=== PATIENT | female | born 1940 | race Caucasian/White ===

== ENCOUNTER 2017-07-09 19:13 | Emergency (ER) | payer OTHER ==
[~2017-07-09] VITALS: Ht 152.4 cm; Wt 59.0 kg
[~2017-07-09 19:13] MED LIST: ALBU90OI INH; ATOR10; ATOR20 PO; AZIT250 PO; CARV6.25 PO; CYAN1000 PO; ESCI10; ESCI10 PO; HYDACE5 PO; LISI10; LISI5 PO; MECL25 PO; MELO7.5 PO; NADO20; NADO40; NADO40 PO; NADOLOL PO; OMEP20ER PO; PROACE100 PO; RISE35 PO; RXPROACE PO; SILSUL1TC TOP; SULTRIDS PO; TRAM50 PO; TRIA55OI
[2017-07-09] MEDS ORDERED: BENZ100A PO (20:42)
== END 2017-07-09 20:54 | disposition home or self-care (01) ==
LOC: ER 19:13
DX: J18.9 Pneumonia, unspecified organism (principal); R05 Cough; Z79.899 Other long term (current) drug therapy; I10 Essential (primary) hypertension; E78.5 Hyperlipidemia, unspecified; F32.9 Major depressive disorder, single episode, unspecified
CPT/HCPCS: 99283

== ENCOUNTER → 2017-07-11 | Outpatient (CLI) | payer OTHER ==
[~2017-07-11] MED LIST changes: +BENZ100A PO
[2017-07-11 15:39] LABS: Source, Urine Clean Catch
[2017-07-11 16:14] LABS: Bacteria Few /hpf; Squamous Epithelial Cells Not Seen /hpf (Few); White Blood Cells, Urine 25-50 /hpf (0-5)
[2017-07-11 16:15] LABS: Hyaline Casts Rare /lpf (0-2); Renal Epithelial Rare /hpf (0-Rare); Transitional Epithelial Cells Few /hpf (0-Rare)
== END ==
LOC: LAB SHORT 15:36
PROVIDERS: Physician Assistant
DX: R53.83 Other fatigue (principal)
CPT/HCPCS: 81015

== ENCOUNTER → 2017-09-03 | Outpatient (CLI) | payer OTHER | END | disposition home or self-care (01) | LOC: LAB EV 11:41 | DX: B37.0 Candidal stomatitis (principal) | CPT/HCPCS: 87070 ==

== ENCOUNTER 2020-11-01 18:56 | Emergency (ER) | payer OTHER ==
[~2020-11-01] VITALS: Ht 152.4 cm; Wt 36.3 kg
[~2020-11-01 18:56] MED LIST changes: -CARV6.25 PO; -CYAN1000 PO; +Carvedilol12.5 MG PO; +Vitamin B-121000 MCG PO
[2020-11-01 19:56] LABS: BASOPHILS ABSOLUTE AUTO 0.02 K/mm3 (0.00-0.23); BASOPHILS PERCENT AUTO 0 % (0-2); EOSINOPHILS ABSOLUTE AUTO 0.02 K/mm3 (0.00-0.68); EOSINOPHILS PERCENT AUTO 0 % (0-6); Hematocrit 32.9 % (33.0-51.0); Hemoglobin 10.7 g/dL (11.5-16.0); IMMATURE GRAN ABSOLUTE AUTO 0.05 K/mm3 (0.00-0.10); IMMATURE GRAN PERCENT AUTO 0 % (0-1); LYMPHOCYTES ABSOLUTE AUTO 1.28 K/mm3 (0.84-5.20); LYMPHOCYTES PERCENT AUTO 10 % (21-46); MONOCYTES ABSOLUTE AUTO 0.67 K/mm3 (0.16-1.47); MONOCYTES PERCENT AUTO 5 % (4-13); Mean Corpuscular HGB 30.2 pg (26.0-34.0); Mean Corpuscular HGB Conc 32.5 g/dL (31.5-36.5); Mean Corpuscular Volume 93 fL (80-100); Mean Platelet Volume 9.1 fL (9.1-12.4); NEUTROPHILS ABSOLUTE AUTO 11.19 K/mm3 (1.96-9.15); NEUTROPHILS PERCENT AUTO 84 % (41-73); Platelet Count 410 K/mm3 (150-400); RDW Coefficient Variation 14.8 % (11.7-14.2); RDW Standard Deviation 50.3 fL (35.1-46.3); Red Blood Cell Count 3.54 M/mm3 (3.80-5.20); White Blood Cell Count 13.23 K/mm3 (4.00-11.30)
[2020-11-01 20:31] LABS: Alanine Aminotransfer (ALT/SGP 41 U/L (12-78); Albumin/Globulin Ratio 0.5 (0.8-1.8); Alk Phos 1086 U/L (50-136); Anion Gap 4 mmol/L (6-16); Aspartate Aminotrans (AST/SGOT 55 U/L (12-37); Blood Urea Nitrogen 10 mg/dL (8-24); Bun/Creatinine Ratio 12.5 (12.0-20.0); CO2, Blood 30 mmol/L (21-32); Calcium, Blood 8.2 mg/dL (8.5-10.1); Chloride, Blood 103 mmol/L (98-108); Globulin, Blood 4.1 g/dL (2.2-4.0); Glomerular Filtration Rate >60 (60-); Glucose, Blood 123 mg/dL (70-99); Potassium, Blood 3.9 mmol/L (3.5-5.5); Sodium, Blood 137 mmol/L (136-145); Total Protein, Blood 6.1 g/dL (6.4-8.2)
[2020-11-01 22:48] LABS: Source, Urine Clean Catch
[2020-11-01 22:52] LABS: Appearance, Urine Clear (Clear); Bilirubin, Urine Neg (Neg); Blood, Urine Neg (Neg); Color, Urine Yellow (P-Yellow); Glucose Qualitative, Urine Neg (Neg); Ketones, Urine Neg (Neg); Leukocyte Esterase, Urine 2+ (Neg); Nitrite, Urine Neg (Neg); Protein, Urine 1+ (Neg); Specific Gravity, Urine 1.005 (1.003-1.022); Urobilinogen, Urine 1+ (Normal)
[2020-11-01] MEDS ORDERED: AMOCLA875 PO (22:54)
[2020-11-01] MEDS ORDERED: CLIN150 PO (22:54)
[2020-11-01 22:59] LABS: Bacteria Mod /hpf; Red Blood Cells, Urine 0-2 /hpf (0-2); Squamous Epithelial Cells Few /hpf (Few)
== END 2020-11-01 23:10 | disposition home or self-care (01) ==
LOC: ER 18:56
PROVIDERS: Physician Assistant
DX: K52.82 Eosinophilic colitis (principal); I10 Essential (primary) hypertension; E78.5 Hyperlipidemia, unspecified; J44.9 Chronic obstructive pulmonary disease, unspecified; L03.115 Cellulitis of right lower limb; Z79.899 Other long term (current) drug therapy
CPT/HCPCS: 36415; 74177; 80053; 81001; 83690; 85025; 87077; 87086; 87186; 99284-25; A9270; J7030; Q9967

== ENCOUNTER 2020-11-18 21:22 | Inpatient (IN) | payer OTHER ==
[~2020-11-18] VITALS: Ht 162.6 cm; Wt 46.4 kg
[~2020-11-18 21:22] MED LIST changes: +AMOCLA875 PO; +CLIN150 PO
[2020-11-19 01:15] LABS: BASOPHILS ABSOLUTE AUTO 0.01 K/mm3 (0.00-0.23); BASOPHILS PERCENT AUTO 0 % (0-2); EOSINOPHILS PERCENT AUTO 0 % (0-6); Hematocrit 32.5 % (33.0-51.0); Hemoglobin 10.7 g/dL (11.5-16.0); IMMATURE GRAN ABSOLUTE AUTO 0.09 K/mm3 (0.00-0.10); IMMATURE GRAN PERCENT AUTO 1 % (0-1); LYMPHOCYTES ABSOLUTE AUTO 0.67 K/mm3 (0.84-5.20); LYMPHOCYTES PERCENT AUTO 4 % (21-46); MONOCYTES ABSOLUTE AUTO 1.02 K/mm3 (0.16-1.47); MONOCYTES PERCENT AUTO 6 % (4-13); Mean Corpuscular HGB 30.1 pg (26.0-34.0); Mean Corpuscular HGB Conc 32.9 g/dL (31.5-36.5); Mean Corpuscular Volume 91 fL (80-100); Mean Platelet Volume 9.4 fL (9.1-12.4); NEUTROPHILS ABSOLUTE AUTO 14.58 K/mm3 (1.96-9.15); NEUTROPHILS PERCENT AUTO 89 % (41-73); Platelet Count 286 K/mm3 (150-400); RDW Coefficient Variation 14.8 % (11.7-14.2); RDW Standard Deviation 49.6 fL (35.1-46.3); Red Blood Cell Count 3.56 M/mm3 (3.80-5.20); White Blood Cell Count 16.37 K/mm3 (4.00-11.30)
[2020-11-19 01:34] LABS: Albumin, Blood 1.9 g/dL (3.4-5.0); Albumin/Globulin Ratio 0.5 (0.8-1.8); Bilirubin, Total 0.9 mg/dL (0.1-1.0); Bun/Creatinine Ratio 18.1 (12.0-20.0); Calcium, Blood 7.9 mg/dL (8.5-10.1); Creatinine, Blood 1.66 mg/dL (0.40-1.00); Globulin, Blood 3.8 g/dL (2.2-4.0); Potassium, Blood 4.6 mmol/L (3.5-5.5); Total Protein, Blood 5.7 g/dL (6.4-8.2); Troponin I 0.106 ng/mL (0.000-0.040)
[2020-11-19] MEDS ORDERED: VENL75ER PO (05:42)
[2020-11-19] MEDS ORDERED: MOBIC15 MG PO (05:44)
[2020-11-19] MEDS ORDERED: BACTRIM DS TAB1 EAC6 PO (05:45)
[2020-11-19 09:42] LABS: BASOPHILS ABSOLUTE AUTO 0.01 K/mm3 (0.00-0.23); BASOPHILS PERCENT AUTO 0 % (0-2); EOSINOPHILS PERCENT AUTO 0 % (0-6); Hematocrit 28.2 % (33.0-51.0); IMMATURE GRAN ABSOLUTE AUTO 0.04 K/mm3 (0.00-0.10); IMMATURE GRAN PERCENT AUTO 0 % (0-1); LYMPHOCYTES ABSOLUTE AUTO 0.63 K/mm3 (0.84-5.20); LYMPHOCYTES PERCENT AUTO 6 % (21-46); MONOCYTES PERCENT AUTO 6 % (4-13); Mean Corpuscular HGB 29.6 pg (26.0-34.0); Mean Corpuscular HGB Conc 31.9 g/dL (31.5-36.5); Mean Corpuscular Volume 93 fL (80-100); Mean Platelet Volume 9.4 fL (9.1-12.4); NEUTROPHILS ABSOLUTE AUTO 9.43 K/mm3 (1.96-9.15); NEUTROPHILS PERCENT AUTO 88 % (41-73); Platelet Count 231 K/mm3 (150-400); RDW Coefficient Variation 15.2 % (11.7-14.2); RDW Standard Deviation 51.5 fL (35.1-46.3); Red Blood Cell Count 3.04 M/mm3 (3.80-5.20); White Blood Cell Count 10.71 K/mm3 (4.00-11.30)
[2020-11-19 10:11] LABS: Troponin I 0.102 ng/mL (0.000-0.040)
[2020-11-19 10:12] LABS: Albumin, Blood 2.5 g/dL (3.4-5.0); Albumin/Globulin Ratio 0.8 (0.8-1.8); Bilirubin, Total 1.1 mg/dL (0.1-1.0); Bun/Creatinine Ratio 17.4 (12.0-20.0); Creatinine, Blood 1.78 mg/dL (0.40-1.00); Globulin, Blood 3.2 g/dL (2.2-4.0); Potassium, Blood 4.2 mmol/L (3.5-5.5); Total Protein, Blood 5.7 g/dL (6.4-8.2)
[2020-11-19 10:17] LABS: Bun/Creatinine Ratio 17.2 (12.0-20.0); Creatinine, Blood 1.74 mg/dL (0.40-1.00); Potassium, Blood 4.1 mmol/L (3.5-5.5)
[2020-11-19 10:49] LABS: Creatine Kinase MB 5.6 ng/mL (0.0-3.6); Creatine Kinase MB Index 1.8 (0.0-4.0)
[2020-11-19 16:47] LABS: Hematocrit 28.7 % (33.0-51.0); Hemoglobin 9.3 g/dL (11.5-16.0)
[2020-11-19 17:16] LABS: Troponin I 0.112 ng/mL (0.000-0.040)
[2020-11-19 17:30] LABS: Creatine Kinase MB 4.8 ng/mL (0.0-3.6); Creatine Kinase MB Index 1.3 (0.0-4.0)
--- NOTE | 2020-11-19 18:24 | NUR ---
SHIFT SUMMARY PT ADMITTED TO UNIT AT 0750 THIS SHIFT. A&O TO SELF, SITUATION, AND FAMILY, PT IS VERY [place] AND FORGETFUL. PT IS A POOR HISTORIAN AND UNABLE TO RECALL MEDICATIONS AND SOME HEALTH HX. PT IS A 2P MAX ASSIST WITH TRANSFERS AND WITH BED MOBILITY. NO C/O PAIN OR ANY DISCOMFORT. NO C/O CP, SOB, N&V, OR DYSURIA. VSS. PT IS COOPERATIVE WITH CARE, SOME ANXIETY NOTED DURING CARE. PT TOLERATES MEDS ONE AT A TIME WITH THIN FLUIDS. PT ON IV ABX ORDERED, NO ASE NOTED. BED AT LOWEST POSITION. CALL LIGHT WITHIN REACH.
[2020-11-20 05:03] LABS: Albumin/Globulin Ratio 0.7 (0.8-1.8); Bilirubin, Total 0.6 mg/dL (0.1-1.0); Bun/Creatinine Ratio 16.2 (12.0-20.0); Calcium, Blood 7.3 mg/dL (8.5-10.1); Creatinine, Blood 1.79 mg/dL (0.40-1.00); Globulin, Blood 2.8 g/dL (2.2-4.0); Potassium, Blood 3.7 mmol/L (3.5-5.5); Total Protein, Blood 4.8 g/dL (6.4-8.2)
--- NOTE | 2020-11-20 18:07 | NUR ---
SHIFT SUMMARY PT A&O TO SELF AND FAMILY, PLEASANT AND COOPERATIVE TO CARE. PT MEDICATED FOR KIMANI KNEE PAIN PER EMAR. NO C/O CP, SOB, OR N&V. PT ON IV ABX ORDERED, NO ASE NOTED. 2P MAX ASSIST WITH BED MOBILITY. PT INCONTINENT, ATTENDS IN PLACE. DENIES DYSURIA. BED AT LOWEST POSITION. CALL LIGHT WITHIN REACH.
--- NOTE | 2020-11-21 00:10 | NUR ---
transfer report to Krysten DOZIER on elderly PT lives alone with falls & unable to care for self. SW & family OOT working on safe dc paln. TRanferred room from 361 to 341 due to need for tele monitoring bed. Bedside report given. Personal belongings sent with PT to new room.
--- NOTE | 2020-11-21 00:15 | NUR ---
ASSUMED CARE RECEIVED REPORT FROM TASIA WOOTEN. PT RESTING QUIETLY, IN NAD, RESPS E/U. DENIES PAIN. APPEARS COMFORTABLE. NO ACUTE NEEDS ASSESSED AT THIS TIME. CALL LIGHT, POSSESSIONS IN REACH, BED IN LOW AND LOCKED POSITION WITH ALARMS ON.
--- NOTE | 2020-11-21 04:17 | NUR ---
NEWS VIDEO EDITOR SUMMARY PT ASLEEP, IN NAD. VS REVIEWED,WNL. NO ACUTE CHANGES IN CONDITION NOTED. NO C/O PAIN OR DISCOMFORT. RESPS E/U. DENIES NEEDS AT THIS TIME. CALL LIGHT, POSSESSIONS IN REACH, BED IN LOW AND LOCKED POSITION WITH ALARMS ON. WILL CONTINUE TO PROVIDE CARE UNTIL REPORT GIVEN TO ONCOMING RN.
[2020-11-21 06:03] LABS: BASOPHILS ABSOLUTE AUTO 0.01 K/mm3 (0.00-0.23); BASOPHILS PERCENT AUTO 0 % (0-2); EOSINOPHILS ABSOLUTE AUTO 0.02 K/mm3 (0.00-0.68); EOSINOPHILS PERCENT AUTO 0 % (0-6); Hematocrit 26.8 % (33.0-51.0); Hemoglobin 8.8 g/dL (11.5-16.0); IMMATURE GRAN ABSOLUTE AUTO 0.03 K/mm3 (0.00-0.10); IMMATURE GRAN PERCENT AUTO 1 % (0-1); LYMPHOCYTES ABSOLUTE AUTO 1.04 K/mm3 (0.84-5.20); LYMPHOCYTES PERCENT AUTO 17 % (21-46); MONOCYTES ABSOLUTE AUTO 0.55 K/mm3 (0.16-1.47); MONOCYTES PERCENT AUTO 9 % (4-13); Mean Corpuscular HGB 29.7 pg (26.0-34.0); Mean Corpuscular HGB Conc 32.8 g/dL (31.5-36.5); Mean Corpuscular Volume 91 fL (80-100); Mean Platelet Volume 9.6 fL (9.1-12.4); NEUTROPHILS ABSOLUTE AUTO 4.39 K/mm3 (1.96-9.15); NEUTROPHILS PERCENT AUTO 73 % (41-73); Platelet Count 172 K/mm3 (150-400); RDW Coefficient Variation 15.1 % (11.7-14.2); Red Blood Cell Count 2.96 M/mm3 (3.80-5.20); White Blood Cell Count 6.04 K/mm3 (4.00-11.30)
[2020-11-21 06:35] LABS: Bun/Creatinine Ratio 16.8 (12.0-20.0); Calcium, Blood 7.6 mg/dL (8.5-10.1); Creatinine, Blood 1.31 mg/dL (0.40-1.00); Potassium, Blood 3.8 mmol/L (3.5-5.5)
[2020-11-21 08:40] LABS: Percent Saturation 36.4 % (15.0-50.0)
[2020-11-21] MEDS ORDERED: ASPI81CH PO (13:04)
[2020-11-21] MEDS ORDERED: ACET325 PO (13:04)
[2020-11-21] MEDS ORDERED: TRAM50 PO (13:05)
[2020-11-21] MEDS ORDERED: AZIT250 PO (13:05)
[2020-11-21] MEDS ORDERED: CEFP200 PO (13:05)
--- NOTE | 2020-11-21 19:51 | NUR ---
PT DISCHARGED 1710 HOME- DC INSTRUCTIONS GIVEN TO DAUGHTER AND PT TOGETHER. HOME HEALTH TO FOLLOW. HOSP BED AND COMMODE WILL BE DELIVERED TO HOUSE. PT TRANSFERRED FROM BED TO WHEELCHAIR WITH GAIT BELT, PIVOT TX TO CHAIR. PT HAS POOR COORDINATION AND MIN STRENGTH, ABLE TO BEAR PARTIAL WT BLE. SENT HOME WITH INSTRUCTIONS ON PIVOT TX AND BEDBAN USE. INSTRUCTED ON SAFETY IN TRANSFERS. PT SENT HOME WITH BELONGINGS. CLIFF DROVE HOME IN PRIVATE CAR.
== END 2020-11-21 17:14 | disposition home health service (06) | DRG 682 ==
LOC: ER 21:22 → MEDS 11-19 04:19
PROVIDERS: Emergency Medicine; Internal Medicine; ADMIT Internal Medicine
DX: N17.9 Acute kidney failure, unspecified (principal); I21.4 Non-ST elevation (NSTEMI) myocardial infarction; G93.41 Metabolic encephalopathy; N18.30 Chronic kidney disease, stage 3 unspecified; J11.89 Influenza due to unidentified influenza virus with other manifestations; E86.0 Dehydration; I10 Essential (primary) hypertension; E78.5 Hyperlipidemia, unspecified; M17.0 Bilateral primary osteoarthritis of knee; M19.90 Unspecified osteoarthritis, unspecified site; M85.80 Other specified disorders of bone density and structure, unspecified site; J44.9 Chronic obstructive pulmonary disease, unspecified; Z98.51 Tubal ligation status; F32.9 Major depressive disorder, single episode, unspecified; Z96.652 Presence of left artificial knee joint
CPT/HCPCS: 36415; 71045; 73560-LT; 73560-RT; 76705; 80048; 80053; 82550; 82553; 82607; 82728; 82746; 82947; 83540; 83550; 83605; 84145; 84484; 85014; 85018; 85025; 93005; 93010; 93306; 97110; 97162; 97165; 97530; 99285-25; A9270; J0696; J1650; J7030; P9046

== ENCOUNTER 2020-12-01 16:44 | Inpatient (IN) | payer OTHER, MEDICARE ==
[~2020-12-01] VITALS: Ht 160 cm; Wt 34.9 kg
[~2020-12-01 16:44] MED LIST changes: +ACET325 PO; +ASPI81CH PO; +BACTRIM DS TAB1 EAC6 PO; +CEFP200 PO; +MOBIC15 MG PO; +VENL75ER PO
[2020-12-01 17:22] LABS: BASOPHILS ABSOLUTE AUTO 0.01 K/mm3 (0.00-0.23); BASOPHILS PERCENT AUTO 0 % (0-2); EOSINOPHILS ABSOLUTE AUTO 0.05 K/mm3 (0.00-0.68); EOSINOPHILS PERCENT AUTO 1 % (0-6); Hematocrit 28.6 % (33.0-51.0); Hemoglobin 9.2 g/dL (11.5-16.0); IMMATURE GRAN ABSOLUTE AUTO 0.02 K/mm3 (0.00-0.10); IMMATURE GRAN PERCENT AUTO 0 % (0-1); LYMPHOCYTES ABSOLUTE AUTO 0.99 K/mm3 (0.84-5.20); LYMPHOCYTES PERCENT AUTO 14 % (21-46); MONOCYTES ABSOLUTE AUTO 0.43 K/mm3 (0.16-1.47); MONOCYTES PERCENT AUTO 6 % (4-13); Mean Corpuscular HGB 30.1 pg (26.0-34.0); Mean Corpuscular HGB Conc 32.2 g/dL (31.5-36.5); Mean Corpuscular Volume 94 fL (80-100); NEUTROPHILS ABSOLUTE AUTO 5.57 K/mm3 (1.96-9.15); NEUTROPHILS PERCENT AUTO 79 % (41-73); Platelet Count 276 K/mm3 (150-400); RDW Coefficient Variation 15.9 % (11.7-14.2); RDW Standard Deviation 54.8 fL (35.1-46.3); Red Blood Cell Count 3.06 M/mm3 (3.80-5.20); White Blood Cell Count 7.07 K/mm3 (4.00-11.30)
[2020-12-01 17:44] LABS: Alanine Aminotransfer (ALT/SGP 60 U/L (12-78); Albumin, Blood 1.7 g/dL (3.4-5.0); Albumin/Globulin Ratio 0.5 (0.8-1.8); Alk Phos 955 U/L (50-136); Anion Gap 3 mmol/L (6-16); Aspartate Aminotrans (AST/SGOT 108 U/L (12-37); Bilirubin, Total 0.8 mg/dL (0.1-1.0); Blood Urea Nitrogen 9 mg/dL (8-24); Bun/Creatinine Ratio 11.4 (12.0-20.0); CO2, Blood 28 mmol/L (21-32); Calcium, Blood 7.8 mg/dL (8.5-10.1); Chloride, Blood 106 mmol/L (98-108); Creatinine, Blood 0.79 mg/dL (0.40-1.00); Globulin, Blood 3.4 g/dL (2.2-4.0); Glomerular Filtration Rate >60 (60-); Glucose, Blood 90 mg/dL (70-99); Potassium, Blood 4.3 mmol/L (3.5-5.5); Sodium, Blood 137 mmol/L (136-145); Total Protein, Blood 5.1 g/dL (6.4-8.2)
[2020-12-01 18:18] LABS: SARS-Cov-2 (COVID-19) PCR, MMC NEGATIVE (NEGATIVE)
[2020-12-01 19:21] LABS: Source, Urine Catheter
[2020-12-01 19:24] LABS: Appearance, Urine Clear (Clear); Bilirubin, Urine Neg (Neg); Blood, Urine Neg (Neg); Color, Urine Yellow (P-Yellow); Glucose Qualitative, Urine Neg (Neg); Ketones, Urine Neg (Neg); Leukocyte Esterase, Urine Neg (Neg); Nitrite, Urine Neg (Neg); Protein, Urine Neg (Neg); Urobilinogen, Urine NORM (Normal)
[2020-12-01 23:16] LABS: CPK Creatine Kinase 56 U/L (26-193)
--- NOTE | 2020-12-02 03:07 | NUR ---
ADMITTED FROM ED. PT DISORIENTED TO TIME AND FORGETFUL. VSS ON RA. RLQ PAIN MANAGED WELL W/ ULTRAM AND FENTANYL. IV FLUIDS INFUSING. NPO AT MIDNIGHT. PER PT AND SON, THEY WANT TO AVOID SURGERY. PT NOT OOB. SHAIKH PATENT W/ GOOD URINE OUTPUT. REPOSITIONED Q2HR.
[2020-12-02 04:14] LABS: BASOPHILS ABSOLUTE AUTO 0.02 K/mm3 (0.00-0.23); BASOPHILS PERCENT AUTO 0 % (0-2); EOSINOPHILS ABSOLUTE AUTO 0.06 K/mm3 (0.00-0.68); EOSINOPHILS PERCENT AUTO 1 % (0-6); Hematocrit 26.4 % (33.0-51.0); Hemoglobin 8.4 g/dL (11.5-16.0); IMMATURE GRAN ABSOLUTE AUTO 0.01 K/mm3 (0.00-0.10); IMMATURE GRAN PERCENT AUTO 0 % (0-1); LYMPHOCYTES ABSOLUTE AUTO 0.59 K/mm3 (0.84-5.20); LYMPHOCYTES PERCENT AUTO 12 % (21-46); MONOCYTES ABSOLUTE AUTO 0.38 K/mm3 (0.16-1.47); MONOCYTES PERCENT AUTO 8 % (4-13); Mean Corpuscular HGB 29.9 pg (26.0-34.0); Mean Corpuscular HGB Conc 31.8 g/dL (31.5-36.5); Mean Corpuscular Volume 94 fL (80-100); Mean Platelet Volume 8.9 fL (9.1-12.4); NEUTROPHILS ABSOLUTE AUTO 4.02 K/mm3 (1.96-9.15); NEUTROPHILS PERCENT AUTO 79 % (41-73); Platelet Count 220 K/mm3 (150-400); RDW Standard Deviation 54.4 fL (35.1-46.3); Red Blood Cell Count 2.81 M/mm3 (3.80-5.20); White Blood Cell Count 5.08 K/mm3 (4.00-11.30)
[2020-12-02 04:35] LABS: Alanine Aminotransfer (ALT/SGP 51 U/L (12-78); Albumin, Blood 2.4 g/dL (3.4-5.0); Albumin/Globulin Ratio 0.9 (0.8-1.8); Alk Phos 809 U/L (50-136); Anion Gap 2 mmol/L (6-16); Aspartate Aminotrans (AST/SGOT 79 U/L (12-37); Bilirubin, Total 1.3 mg/dL (0.1-1.0); Blood Urea Nitrogen 8 mg/dL (8-24); Bun/Creatinine Ratio 11.7 (12.0-20.0); CO2, Blood 29 mmol/L (21-32); Chloride, Blood 108 mmol/L (98-108); Creatinine, Blood 0.69 mg/dL (0.40-1.00); Globulin, Blood 2.8 g/dL (2.2-4.0); Glomerular Filtration Rate >60 (60-); Glucose, Blood 74 mg/dL (70-99); Potassium, Blood 3.9 mmol/L (3.5-5.5); Sodium, Blood 139 mmol/L (136-145); Total Protein, Blood 5.2 g/dL (6.4-8.2)
--- NOTE | 2020-12-02 17:31 | NUR ---
SHIFT SUMMARY PT HAS BEEN ALERT AND ORIENTED X4 TODAY WITH MINIMAL FORGETFULLNESS. DAUGHTER AT BEDSIDE FOR MOST OF SHIFT. MEDICATED FOR PAIN IN LEFT HIP WITH ULTRAM TODAY, PT REPORTS TOLERABLE WHILE NOT BEING MOVED, MOST OF PAIN WITH SPASMS IN LEG. PT ELECTED TO DECLINE SURGERY AND MOVE TOWARDS COMFORT CARE MEASURES DURING SHIFT. PALLIATIVE CARE IN TO SEE PATIENT AND DAUGHTER FOR EDUCATION. PT REPORTS FEELING BETTER AFTER TALK. DR COSTA AWARE. PT SWITCHED TO DNR PER HER REQUEST. PLAN WILL BE TO CONTINUE WITH HOSPICE CONSULT AND DC TO [facility] AT SOME POINT. PT TOLERATING PO WELL, SHAIKH PATENT AND DRAINING. PT SWITCHED TO MECH SOFT DIET PER HER REQUEST R/T LACK OF TEETH. PT ASKS TO TRY MECH SOFT AND WANTS TO TRY PUREE IF UNABLE TO TOLERATE.
--- NOTE | 2020-12-02 18:07 | NUR ---
pt requesting pain medications . will review bowel care tomorrow to see how she is tolerating medications. pt very frail concern is ability pt postion her to have a BM may be very painfull. will see how much po intake she has end encourge offering fluids.
--- NOTE | 2020-12-03 06:26 | NUR ---
PATIENT CONFUSED AT BASELINE. PT C/O L KNEE AND RLQ PAIN. ALL PRN PAIN MEDS GIVEN AROUND CLOCK. SLEEPING B/W CARE. REPOSTIONED Q2HR. PT HAD 2 LARGE LOOSE BMS. CALAZIME CREAM APPLIED TO PRESSURE WOUND. SLEEPING B/W CARE. USING CALL LIGHT TO MAKE NEEDS KNOWN.
--- NOTE | 2020-12-03 11:01 | NUR ---
PT IS RESTING COMFORTABLY IN BED AT THIS TIME. SHE WAS GIVEN PAIN MEDICATION AND ASSISTED TO REPOSITION ONTO HER RIGHT SIDE. ATTENDS CHANGED, NINFA CARE AND CATHETER CARE COMPLETED. ALLYVEN DRESSING APPLIED TO BUTTOCKS OVER PRESSURE INJURY. PT'S NINFA AREA IS ALSO REDDENED. ULCERS PRESENT TO MEDIAL GREAT TOE ON BLE. DRESSINGS ARE C/D/I, SOME SS DRAINAGE PRESENT, WOUND BEDS APPEAR TO HAVE YELLOW ESCAR. OPEN WOUND ALSO PRESENT TO RIGHT 2ND TOE, THAT IS REDDENED. PT TOLERATED MOVE WELL BUT DID REPORT INCREASED PAIN. PT REPORTED COMFORT AFTER REPOSTIONING.
--- NOTE | 2020-12-03 14:30 | NUR ---
PT IS SITTING UP IN BED. SHE IS PLEASANTLY CONFUSED. PT ASSISTED TO REPOSITION. MEPILEX HEAL DRESSINGS PLACED FOR PREVENTION. DRESSINGS REPLACED ON MEDIAL GREAT TOES. WILL CONTINUE TO MONITOR.
--- NOTE | 2020-12-03 16:39 | NUR ---
PT WAS REPOSITIONED INTO SUPINE POSITION WITH PILLOWS UNDER EACH HIP IN TO MAKE SITTING UP FOR DINNER MORE COMFORTABLE. ATTENDS CLEAN AND DRY. PT TOLERATED REPOSITIONING WELL WITHOUT NEED FOR ADDITIONAL PAIN MEDICATION. PT'S SON IS AT BEDSIDE, PT APPEARS TO ENJOY HIS COMPANY AND CONVERSATION.
--- NOTE | 2020-12-03 17:22 | NUR ---
Spiritual care note: Mrs. Dawkins was pleasantly confused. She appears quite frail, but denied concerns/pain. She did not know why she was hospitalized. We had a pleasant albeit disjointed conversation. She allowed me to pray for her. No family present at time of visit. I will remain available.
--- NOTE | 2020-12-03 17:30 | NUR ---
PT SITTING UP IN BED TALKING WITH HER SON. SHE IS EATING DINNER INDEPENDENTLY. PT COMPLAINING OF PAIN TO HER L KNEE. TRAMADOL AND TYLENOL GIVEN TO MANAGE PAIN. VS CHECKED AND COREG WAS ALSO GIVEN. WILL CONTINUE TO MONITOR.
--- NOTE | 2020-12-03 19:31 | NUR ---
SHIFT SUMMARY PAIN HAS BEEN MANAGED WITH PO AND IV PAIN MEDICATION. PT HAS INCREASED PAIN WITH MOVEMENT BUT TOLERATES REPOSITIONING WITH PAIN MEDICATION. PT HAS REQUIRED REPOSITIONING Q2. SHE HAS BEEN ALERT AND TALKED WITH FAMILY THIS SHIFT. SHE HAS BEEN ABLE TO TO EAT INDEPENDENTLY. PT'S SON AND DAUGHTER CAME TO VISIT HER. VSS. WILL MONITOR UNTIL REPORT TO NOC RN.
--- NOTE | 2020-12-03 20:24 | NUR ---
pt resting well brought her some coffee and chocolate. Son at bedside her affect was very bright!!
--- NOTE | 2020-12-04 05:32 | NUR ---
HEAT PAD PER PATIENT REQUEST, HEAT PAD TURNED ON AND PLACED TO RLE.
--- NOTE | 2020-12-04 05:34 | NUR ---
SHIFT SUMMARY S/P L HIP FX - NON OPERATIVE, ALERT BUT PLEASANTLY CONFUSED, PAIN MANAGED PER EMAR TO PATIENT'S SATISFACTION, PT REPORTS NOT WANTING MALE STAFF TO ASSIST W/ CHANGING HER, PER HER REQUEST THIS WAS ALL DONE BY FEMALE STAFF. NO ACUTE EVENTS THIS SHIFT. CALL LIGHT IN REACH, WILL CTM AND REPORT TO ONCOMING DAY RN.
--- NOTE | 2020-12-04 09:47 | NUR ---
COMFORT CARE PT REPOSITIONED AND CHANGED. NOTICED THAT CATHETER WAS LEAKING SO BALLON DEFLATED AND CATHETER ADVANCED. LEAKING SEEMS TO HAVE STOPPED, WILL CHECK AGAIN IN AN HOUR. MEPILEX APPLIED TO COCCYX, SKIN EXCORIATION NOTED. PT MEDICATED FOR PAIN AT THIS TIME WELL.
--- NOTE | 2020-12-04 14:19 | NUR ---
COMFORT CARE PT C/O OF ANKLE PAIN. LEGS READJUSTED IN THE BED AND HEEL PROTECTOR IN PLACE. PT VERBALIZED THAT THIS ALLEVIATED HER PAIN.
--- NOTE | 2020-12-04 18:37 | NUR ---
SHIFT SUMMARY PT ADMITTED FOR HIP FX AND ON COMFORT CARE. PT IS VERY PLEASANT AND HAS C/O PAIN X1 TODAY AND TREATED PER EMR. SHAIKH LEAKED THIS SHIFT AND THE ISSUE WAS RESOLVED AFTER BEING READVANCED. MEPILEX APPLIED TO COCCYX. SON AT THE BEDSIDE. HOPE TO DC TO [facility].
--- NOTE | 2020-12-05 05:27 | NUR ---
SHIFT SUMMARY S/P L HIP FX, ALERT BUT PLEASANTLY CONFUSED, CALM AND COOPERATIVE W/ CARE BUT RESISTANT TO MALE STAFF INTERACTIONS, TOLERATING PO, VOIDING DARK YELLOW URINE VIA SHAIKH, DENIES PAIN T/O SHIFT UP TO CURRENT TIME, Q2 TURNS AND ON COMFORT CARE, DC PENDING WHEN BED AVAILABLE, NO ACUTE EVENTS THIS SHIFT. CALL LIGHT IN REACH, WILL CTM AND REPORT TO ONCOMING DAY RN.
--- NOTE | 2020-12-05 09:23 | NUR ---
PT APPEARS TO BE RESTING COMFORTABLY AT TIME OF ASSESSMENT. ALERT, ANSWERS QUESTIONS APPROPRIATLY. DRESSING CHANGE TO HEELS WITH MEPILEX AND HEEL PROTECTORS RE-APPLIED. PT DENIES PAIN AT THIS TIME. ORAL CARE AND REPOSITIONING DONE. PT SITTING UP IN BED EATING BREAKFAST.
--- NOTE | 2020-12-05 16:01 | NUR ---
PT APPEARS TO BE RESTING COMFORTABLY. ALERT, COMMUNICATES NEEDS AT TIMES. PT HAS REFUSED REPOSITIONING AT TIMES "SHE IS COMFORTABLE".
--- NOTE | 2020-12-05 18:25 | NUR ---
PT RESTING COMFORTABLY AT THIS TIME, DECLINES REPOSTIION. ORAL CARE COMPLETE. DRESSING CHANGES WITH MEPILEX TO BILAT HEELS/TOES. DENIES NEED FOR PAIN MEDICATION AT THIS TIME.
--- NOTE | 2020-12-06 04:20 | NUR ---
SHIFT SUMMARY PT RESTED WELL T/O SHIFT. NON-SURGICAL, COMFORT CARE. LEFT HIP FX, EXERNALLY ROTATED, SHORTENED. PPP, DENIES N/T BLE, MOVES ALL TOES WELL. PT REFUSING TO BE MOVED INTERMITTENTLY T/O NIGHT SAYING "I AM COMFY, DONT MOVE ME." X1 LARGE LIQUID BM THIS SHIFT. SHAIKH SECURE/DRAINING DARK YELLOW URINE. PT TAKING SIPS OF WATER T/O NIGHT + X1 PUDDING. DRESSING TO COCCYX NEW THIS SHIFT. PT USES CALL LIGHT FOR ASSISTANCE. RESTING WELL AT THIS TIME.
--- NOTE | 2020-12-06 09:06 | NUR ---
PT APPEARS TO BE RESTING COMFORTABLY AT TIME OF ASSESSMENT 0730. PT AWAKENS EASILY TO VERBAL STIMULI, ALERT AND ANSWERS QUESTIONS APPROPRIATLY. PT REPORTS PAIN 4/10 L HIP/L SHOULDER, BOOSTED UP IN BED, PT STATES THAT HELPS WITH PAIN, DENIES NEED FOR PAIN MEDICATION. SHAIKH PATENT, DRAINAING DARK URINE.
--- NOTE | 2020-12-06 09:13 | NUR ---
PT C/O CONTINUED PAIN IN L HIP/SHOULDER. PT MEDICATED WITH TYLENOL AND LIDOCAINE PATCH TO L HIP.
--- NOTE | 2020-12-06 12:06 | NUR ---
BED BATH AND PERSONAL CARE COMPLETED BY SAP BI ARCHITECT. PT REPOSITIONED SUPINE WITH PILLOW UNDER LLE AND REPORTS THAT SHE IS COMFORTABLE AT THIS TIME.
--- NOTE | 2020-12-06 13:02 | NUR ---
Pt resting in bed upon arrival. Pt denies pain at this time. Pt appears comfortable with no S/S of distress at this time. Engaged in therapeutic listening and answered questions. 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 Continued conversation and supportive listening. Spoke with Primary RN Madai and discussed case. Palliative Care will remain available.
--- NOTE | 2020-12-06 15:32 | NUR ---
FAMILY AT BEDSIDE WITH PT. PT APPEARS COMFORTABLE, ALERT, INTERACTING WITH FAMILY APPROPRIATLY. DECLINES REPOSITIONING AT THIS TIME.
--- NOTE | 2020-12-06 17:55 | NUR ---
PT DENIES PAIN, REPORTS THAT SHE IS COMFORTABLE. FAMILY AT BEDSIDE. PT SITTING UP IN BED EATING DINNER. DECLINES REPOSTIONING AT THIS TIME
--- NOTE | 2020-12-06 22:33 | NUR ---
PT AWOKE IN DISCOMFORT NEW PILLOWS PLACED UNDER LLE FOR COMFORT, FLOATED HEELS. NEW FLUIDS GIVEN + ASSISTED WITH DRINKING. DENIES FURTHER NEEDS, CALL LIGHT IN REACH + BED ALARM ON FOR SAFETY.
--- NOTE | 2020-12-07 05:27 | NUR ---
SHIFT SUMMARY PT RESTING WELL THIS AM. AAOX4. NON SURGICAL LEFT HIP FX. LLE EXTERNALLY ROTATED + SHORTENED. PPP, DENIES N/T BLE, MOVES ALL TOES WELL. WOUND TO BILATERAL TOES BRADY, MEPILEX ON HEELS. SHAIKH SECURED WITH SMALL AMOUNT DARK TONI/PINK URINE. PT REFUSING REPOSITIONING THIS AM, PT REPORTING "I FEEL COMFY." PT TAKING MODERATE AMOUNTS OF PO FLUIDS + X1 CHOCOLATE PUDDING. PT RESTING WELL THIS AM WITH CALL LIGHT IN REACH.
--- NOTE | 2020-12-07 09:16 | NUR ---
Comfort Care Visit Pt resting in bed upon arrival. Pt denies pain and dyspnea at this time. Pt reports no concerns at this time. Spoke with primary RN Rafael and discuss case. No concerns reported at this time. Palliative Care will remain available.
--- NOTE | 2020-12-07 10:12 | NUR ---
PT REPOSITIONED AT THIS TIME FOR COMFORT. TOLERATED WELL. AA0X4, SITTING UP AND EATING BREAKFAST.
--- NOTE | 2020-12-07 10:13 | NUR ---
PT MEDICATED PER EMAR WITH ULTRAM, PT IN A GOOD MOOD, PLEASANT AND COOPERATIVE. DRINKING COFFEE AND EATING PUDDING AT THIS TIME
--- NOTE | 2020-12-07 18:15 | NUR ---
SHIFT SUMMARY ASSUMED CARE OF PATIENT AT 1700 FROM LORENZA PERALTA RN. PATIENT RESTING PEACEFULLY IN BED. CALLED HOSPITALIST TO OBTAIN ORDER FOR NYSTATIN FOR GROIN AND BUTTOCKS. COMFORT CARE, WAITING TO DISCHARGE TO SNF. LEFT HIP FRACTURE NON-SURGICAL. REPOSITIONING Q2 FOR COMFORT. TOLERATING REGULAR DIET AND FLUIDS. SHAIKH PATENT. MULTIPLE SCATTERED ABRASIONS AND PRESSURE SORES TO LEGS.
--- NOTE | 2020-12-08 04:20 | NUR ---
SHIFT SUMMARY: PT A&O X4. PT C/O LEFT KNEE+HIP PAIN IN BEGINNING OF SHIFT AND MEDICATED WITH 10MG OF ROXINOL PER EMAR. PT REPOSITIONED FOR COMFORT. NEW MEPILEX DRESSING PLACED TO COCCYX. NYSTATIN CREAM APPLIED TO GROIN AREA PER ORDERS. PT HAD ONE SMALL SMEAR IN ATTENDS. SHAIKH CATHETER PATENT AND DRAINING. PT PLEASANT AND COOPERATIVE. APPEARS TO BE RESTING COMFORTABLY THROUGHOUT NIGHT.
--- NOTE | 2020-12-08 08:10 | NUR ---
AWAKE, EATING BREAKFAST, DENIES ANY NEED FOR PAIN MEDS AT THIS TIME, APPEARS TO BE IN NO DISTRESS, REPOSITIONED IN BED, CONT. TO MONITOR FOR ANY CHANGES.
--- NOTE | 2020-12-08 10:30 | NUR ---
Comfort care visit: Met with Deborah is her room. She has no complaints and no concerns at this time. 15 minute therapeutic visit with her this morning. She is looking forward to being discharged to her new place. Per chart review it looks like pt will be going to [facility] with hospice care early next week. Pt talked about her love of cats. Provided her with a glass of perry mist per her request. She is able to swallow without difficulty. She reports she has no pain at this time. PC to continue to follow for symptom management and therapeutic visits.
--- NOTE | 2020-12-08 17:56 | NUR ---
SUMMARY PT COMFORTABLE MOST OF THE DAY, REFUSED LIDOCAINE PATCH THIS AM, REPOSITIONED IN BED T/O SHIFT, C/O PAIN ON L KNEE THIS AFTERNOON, MEDICATED FOR PAIN PER EMAR, ICE APPLIED AND REPOSITIONED FOR COMFORT, TOLERATING DIET WELL, SHAIKH CATH IN PLACE WITH MINIMAL TONI URINE, NO ACUTE CHANGES THIS SHIFT.
--- NOTE | 2020-12-09 07:31 | NUR ---
SHIFT SUMMARY PT REMAIN ON COMFORT CARE, DENIES PAIN T/O MOST OF THE SHIFT, PAIN MEDICATIONS ADMINISTERED 1 TIME, PT PLEASANT AND REPORTS FEELING BETTER THIS MORNING. CALL LIGHT IN REACH, REPORT GIVEN TO DAY RN.
--- NOTE | 2020-12-09 10:19 | NUR ---
C/O PAIN ON L KNEE AND LOOKS UNCOMFORTABLE, REPOSITIONED IN BED, MEDICATED FOR PAIN, DENIES ANY SOB OR ANY OTHER DISCOMFORT, CONT. TO MONITOR FOR ANY CHANGES.
--- NOTE | 2020-12-09 13:05 | NUR ---
Comfort care visit Visited Deborah this afternoon. She is awake, and currently denies any pain. She is requesting "[employer]." Rootbeer provided to her as requested. No further requests at this time. Will continue to be available for symptom management as needed.
--- NOTE | 2020-12-09 18:40 | NUR ---
SUMMARY PT C/O PAIN ON L KNEE MOST OF THE DAY, REPOSITIONED IN BED T/O SHIFT, ICE APPLIED, MEDICATED WITH ROXANOL T/O THE DAY, WITH SHORT RELIEF PT AWAKE AND EATING DINNER, STARTED ON TYLENOL PO AND FLEXERIL PO THIS AFTERNOON, CURRENTLY DENIES ANY PAIN, NO OTHER CHANGES THIS SHIFT.
--- NOTE | 2020-12-09 19:28 | NUR ---
ICE TO L KNEE.
--- NOTE | 2020-12-10 02:05 | NUR ---
COMFORT CARE UPDATE PT IS RESTING QUIETLY AT THIS TIME, REPOSITIONED SUPINE, TOLERATED WELL,RESP UNLABORED, CALL LIGHT IN REACH.
--- NOTE | 2020-12-10 06:09 | NUR ---
SUMMARY PT HAS BEEN ABLE TO REST COMFORTABLY THROUGH THE NIGHT WITH NO PROBLEMS. PAIN MEDICATED X1 WITH 10 MG ROXANOL. REPOSITIONED Q2 HRS TOLERATED, NO NAUSEA REPORTED OR NOTICED. CIRC WNL TO BLE, ON RA. CALL LIGHT IN REACH.
--- NOTE | 2020-12-10 07:38 | NUR ---
PT APPEARS TO BE RESTING COMFORTABLY. DENIES PAIN AT THIS TIME. REPOSITIONING SELF IN BED DURING ASSESSMENT. SHAIKH PATENT, DRAINING CLEAR YELLOW URINE.
--- NOTE | 2020-12-10 09:18 | NUR ---
PT REQUESTS LEGS TO BE REPOSITIONED, PILLOW PLACED UNDER LLE, NEW DRESSINGS APPLIED TO HEELS.
--- NOTE | 2020-12-10 11:25 | NUR ---
PT APPEARS TO BE SLEEPING COMFORTABLY AT THIS TIME. DID NOT WAKE FOR PERSONAL CARE PT WAS PAINFUL WITH REPOSITIONING 1HR AGO. WILL DO SO WHEN PT WAKES.
--- NOTE | 2020-12-10 16:16 | NUR ---
PT REPOSITITIONED WITH HEELS/ELBOWS FLOATED. PT REPORTS PAIN IS TOLERABLE AT THIS TIME FOLLOWING EARLIER ADMINISTRATION OF TRAMADOL. RESTING COMFORTABLY.
--- NOTE | 2020-12-10 17:30 | NUR ---
PT WITH C/O INCREASING PAIN IN L HIP, APPEARS UNCOMFORTABLE. PT MEDICATED WITH 10MG ROXANOL PER EMAR. DECLINES REPOSITIONING AT THIS TIME UNTIL PAIN MEDICATION BEGINS TO WORK.
--- NOTE | 2020-12-11 04:06 | NUR ---
SHIFT SUMMARY PT RESTED WELL T/O NIGHT AFTER ROXANOL X1 YESTARDAY EVENING. CONFUSED/COOPERATIVE. LEFT FEMUR FX, NON-SURGICAL. DENIES N/T BLE, MOVES ALL TOES WELL, PPP. LLE EXTERNALLY ROTATED + SHORTENED. PT ALLOWED MINIMAL REPOSITIONING T/O NIGHT. SHAIKH SECURE/DRAINING SCANT DARK TONI URINE. SIPS WATER/COFFEE THIS SHIFT. HEEL PROTECTORS + NEW HEEL DRESSING TO BLE C/D/I. PT RESTING WELL THIS AM WITH CALL LIGHT IN REACH + NEW HOT COFFEE GIVEN THIS AM. .
--- NOTE | 2020-12-11 07:59 | NUR ---
PT C/O PAIN R SHOULDER, PT REPOSITIONED W/K PAD TO R SHOULDER, PILLOW UNDER L SIDE. PT DOES APPEAR MORE CONFUSED THIS AM COMPARED TO PREVIOUS SHIFT, REORIENTS EASILY. SHAIKH PATENT, DRAINING CLEAR YELLOW URINE.
--- NOTE | 2020-12-11 14:07 | NUR ---
PT APPEARS TO BE RESTING COMFORTABLY AT THIS TIME. DECLINES REPOSITIONING AT THIS TIME.
--- NOTE | 2020-12-11 16:11 | NUR ---
PT GIVEN BED BATH AND ORAL CARE AT APROX 1400, TOLERATED WELL. FAMILY ARRIVED AFTER AND IS AT BEDSIDE AT THIS TIME. PT REPOSITIONED BY DARRON AT APROX 1500, AT THIS TIME SHE REPORTS THAT SHE IS COMFORTABLE AND DENIES NEED FOR PAIN MEDICATION.
--- NOTE | 2020-12-11 17:36 | NUR ---
Spiritual care note: Mrs. Dawkins appears frail and sleepy. She awakens to voice, but does not engage in conversation. She did agree to prayer. She seems comfortable and well cared-for by nursing. No connerns presented. I will remain available.
--- NOTE | 2020-12-12 06:33 | NUR ---
SHIFT SUMMARY: PT PLEASANT THROUGHOUT SHIFT. OCCASIONALLY C/O PAIN IN LEFT KNEE AND RT SHOULDER. PAIN MANAGED WITH 10MG ROXANOL PER EMAR. MEDICATED TWICE THIS SHIFT. NYSTATIN APPLIED TO REDNESS ON BOTTOM AND GROIN AREA PER ORDERS. PT INCONTINENT OF STOOL ONCE. SHAIKH PATENT AND DRAINING. PT TOLERATING CUP OF NOODLES AND SIPS OF WATER.
--- NOTE | 2020-12-12 17:26 | NUR ---
[facility] Care case conf with pt's RN. Obtained update on current status and s/s. Rx's available discussed. Pt has a neighbor friend visiting and when I went to the room they appeared to be having a lively and pleasant conversation. I did not interupt them. RN reports that pt is anxious and fearful upon waking at times and wants family to be at bedside. She has had some family visitors most days but her neighbor today. Plan is for transfer to [facility] with Hospice support when they are ready to accept her.
--- NOTE | 2020-12-12 17:52 | NUR ---
SUMMARY PT SLEPT MOST OF MORNING, AWAKE AT LUNCHTIME, PT WAS ANXIOUS AND DIDN'T SEEM TO KNOW HWERE SHE WAS, PT REORIENTED AND REASSURED, PT HAD A VISITOR MOST AFTERNOON AND SEEMS TO BE HAPPY AND MORE ALERT, DENIES ANY PAIN, REPOSITIONED FOR COMFORT T/O SHIFT, NO ACUTE CHANGES THIS SHIFT.
--- NOTE | 2020-12-13 07:23 | NUR ---
SHIFT SUMMARY S/P HIP FX, ALERT BUT PLEASANTLY CONFUSED, ON COMFORT CARE, PT SLIGHTLY MORE CONFUSED TONIGHT COMPARE TO PRIOR SHIFTS W/ THIS PATIENT. NO ACUTE EVENTS THIS SHIFT, PT CONTINUES TO WAIT [facility] RO[facility]. REPORT GIVEN TO DAY RN.
--- NOTE | 2020-12-13 13:00 | NUR ---
REPOSITIONED FOR COMFORT, KPAD TO L KNEE.
--- NOTE | 2020-12-13 13:47 | NUR ---
sent volunteer to visit for theraputic visit
--- NOTE | 2020-12-13 17:58 | NUR ---
SUMMARY PT MORE AWAKE TODAY, REPOSITIONED T/O SHIFT, MEDICATED FOR PAIN PRN, FAMILY HERE TO VISIT, CONT. COMFORT CARE, NO ACUTE CHANGES THIS SHIFT.
--- NOTE | 2020-12-13 19:52 | NUR ---
PT APPEARS TO BE SLEEPING IN BED. RESP E/U, NO DISTRESS NOTED AT THIS TIME. WILL MONITOR AND DO ASSESSMENT WHEN PT AWAKENS
--- NOTE | 2020-12-14 06:30 | NUR ---
PT ANXIOUS AND FORGETFUL AT TIMES DURING NIGHT, REORIENTED AND CONSOLED EASILY; MED FOR ANXIETY X1. PT DENIED PAIN AT REST, IS PAINFUL AT TIMES W/MVMT. GENTLE REPOSITIONING TYE DURING NIGHT. PT ASSISTED W/PO SNACKS AND FLUIDS, SHAIKH DRNG TONI URINE. CONT TO AWAIT D/C PLANNING.
--- NOTE | 2020-12-14 09:07 | NUR ---
PT IS RESTING QUIETLY WITH EYES CLOSED. PT WAS AWAKENED AND REPOSITION TO THE RIGHT SIDE. PILLOW PLACED UNDER R ARM FOR COMFORT. R LEG ELEVATED. 4+ PITTING EDEMA PRESENT TO RLE FROM ANKLE TO MID THIGH. 3+ PITTING EDEMA PRESENT TO L HIP/THIGH. PT WAS OFFERED BREAKFAST AND DECLINED AND THIS TIME, SHE REPORTED SHE WANTED TO SLEEP LONGER. PT APPEARED TO FALL BACK TO SLEEP. RR AND EFFORT EVEN AND UNLABORED. PT APPEARS COMFORTABLE AT REST AND MINIMAL DISCOMFORT WITH MOVEMENT. WILL CONTINUE TO MONITOR AND PROVIDE SUPPORT NEEDED.
--- NOTE | 2020-12-14 12:36 | NUR ---
PT REPOSITIONED IN BED, FLOATED BILATERAL LEGS, HIPS, TORSO WITH PILLOWS THEN PLACED IN HIGH MENDEZ'S POSITION. PT TOLERATED WELL AND DENIED PAIN. ACCEPTED 2 BITES OF LUNCH AT THIS TIME AND REQUESTED ICE WATER AND A FEW SIPS WERE TAKEN. PT STATED "I'M DONE NOW" WITH LUNCH AFTER THE TWO BITES OF FOOD AND SIPS OF WATER. REPOSITIONED TO SEMI MENDEZ'S FOR COMFORT. PT STATES FEELING COMFORTABLE AND DENIES PAIN AT THIS TIME.
--- NOTE | 2020-12-14 18:50 | NUR ---
SHIFT SUMMARY: PT CONTINUES W/ COMFORT CARE. MOSTLY LETHARGIC, RESTING FREQUENTLY THROUGHOUT SHIFT WITH EYES CLOSED AND EVEN UNLABORED RESPIRATIONS. FAMILY IN TO VISIT AT DINNER TIME, BROUGHT FOOD FROM HOME, CHICKEN AND DUMPLINGS WHICH PT ATE A GOOD AMOUNT OF THEN ATE A SMALL AMOUNT OF HOSPITAL PROVIDED DINNER AFTERWARD. BREAKFAST WAS REFUSED AND ONLY A COUPLE BITES ACCEPTED FOR LUNCH. FAMILY LEFT AROUND 1800 AND PT APPEARED IN GOOD SPIRITS AT THIS POINT AEB CALM SMILING FACE. CATH CARE, BED BATH, AND REPOSITIONING WERE THEN COMPLETED, PT HAD SOME GRIMACING DURING BRIEF CHANGE AND MORPHINE WAS ADMINISTERED WHEN THIS WAS NOTICED. REPOSITIONED FREQUENTLY THROUGHOUT SHIFT. PAIN IS OVERALL BEING WELL MANAGED.
--- NOTE | 2020-12-14 19:13 | NUR ---
SHIFT SUMMARY PAIN MANAGED WITH ROXANOL THIS SHIFT, PAIN MINIMAL EXCEPT WITH REPOSITIONING.. PT SLEPT FOR MUCH OF THE SHIFT AND AWAKENDED TO VERBAL STIMULI FOR MEDICATIONS AND MEALS. PT BECOMES ANXIOUS AT TIMES AND CALLS FOR HER MOTHER. PT RESPONDS WELL TO REASSURANCE. PT AT MINIMAL FOR LUNCH BUT HAD BETTER INTAKE FOR DINNER. PT'S FAMILY BROUGHT FOOD FROM HOME AND ASSISTED HER WITH DINNER. AFTER FAMILY VISIT PT WAS PLEASANT AND MORE AWAKE. PT HAS BEEN REPOSITIONED Q2. REPORT GIVEN TO MITCHELL DOZIER.
--- NOTE | 2020-12-15 05:15 | NUR ---
SHIFT SUMMARY PT RESTED WELL T/O MOST OF NIGHT. AAOX4. COMFORT CARE. NON-SURGICAL LEFT FEMUR FX. 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 TURNED WHEN PT IS AWAKE PER HER REQUEST. X1 ROXANOL GIVEN YESTARDAY EVENING. NO NAUSEA/EMESIS. NO ACUTE CHANGES OVER NIGHT. AWAITING SNF PLACEMENT. PT USES CALL LIGHT FOR ASSISTANCE. CURRENTLY PT IS RESTING ON RIGHT SIDE IN BED WITH CALL LIGHT IN REACH.
--- NOTE | 2020-12-15 08:26 | NUR ---
PT C/O R KNEE PAIN, MEDICATED WITH 10MG ROXANOL AND TRAMADOL PER EMAR. PT REPOSITIONED, KNEES ELEVATED ON PILLOWS. C/O FEELING COLD, HEATING PAD PLACED UNDER BLANKETS AND HEAT TURNED UP IN ROOM. PT DOES NOT APPEAR TO BE IN ANY DISTRESS.
--- NOTE | 2020-12-15 10:41 | NUR ---
PT APPEARS TO BE SLEEPING COMFORTABLY AT THIS TIME. DID NOT WAKE TO REPOSITION.
--- NOTE | 2020-12-15 14:01 | NUR ---
PT DENIES PAIN AT THIS TIME, DOES APPEAR A BIT MORE CONFUSED THIS AFTERNOON. DECLINES REPOSITIONING AT THIS TIME, STATES SHE "IS COMFORTABLE"
--- NOTE | 2020-12-15 18:17 | NUR ---
PT REPORTS PAIN, REPOSITIONED PILLOWS UNDER LEGS AND BOOSTED UP IN BED. ONCE REPOSITIONING COMPLETE PT STATES THAT SHE FEELS MUCH MORE COMFORTABLE.
--- NOTE | 2020-12-15 19:59 | NUR ---
REPOSITIONED FOR COMFORT, FRESH COFFEE GIVEN PER REQUEST. CALL LIGHT IN REACH.
--- NOTE | 2020-12-16 05:24 | NUR ---
SHIFT SUMMARY PT RESTED WELL POST ATIVAN. AAOX4/HO-CHUNK. COMFORT CARE. REPOSITION SELF WELL T/O SHIFT. ASSISTED WITH SNACKS + FLUIDS. NO ACUTE CHANGES OVER NIGHT. PT USES CALL LIGHT FOR ASSISTANCE.
--- NOTE | 2020-12-16 09:43 | NUR ---
PT APPEARED TO BE SLEEPING COMFORTABLY AT TIME OF FIRST ASSESSMENT 0715 SO NO PERSONAL CARE OR REPOSITIONING WAS DONE AT THAT TIME. AT APROX 0845 PT AWOKE, CALLING OUT. PT MEDICATED WITH ROXANOL 10MG PER EMAR AFTER APROX 15 MIN PT VERBALIZED THAT SHE WAS MORE COMFORTABLE. PT BOOSTED UP IN BED AND LEGS REPOSITIONED ON TWO PILLOWS, NECK PILLOW PLACED AROUND NECK. PT SITTING UPRIGHT IN BED AT THIS TIME EATING HER BREAKFAST.
--- NOTE | 2020-12-16 11:08 | NUR ---
PT APPEARS TO BE SLEEPING COMFORTABLY, AROUSES EASILY BUT FALLS EASILY BACK TO SLEEP, DECLINES NEED TO BE REPOSITIONED AT THIS TIME.
--- NOTE | 2020-12-16 15:55 | NUR ---
PT GIVEN BED BATH, NEW MEPILEX'S APPLIED TO BILAT HEELS AND COXYX. EGG CRATE PLACED ON BED, WHLE ROLLING PT ONTO EGG CRATE SHE BEGAN TO CRY AND GRABBED HER L ARM, RN ASSESSED AND SAW A NEW SKIN TEAR IN FOLD OF ELBOW, FOAM DRESSING APPLIED. PT WAS TEARFUL AND VERBALIZED PAIN AFTER REPOSITIONING SUPINE WITH PILLOWS UNDER EACH SIDE AND LEGS. MEDICATED WITH 10MG ROXANOL PER EMAR. PT APEARS TO BE RESTING COMFORTABLY AT THIS TIME.
--- NOTE | 2020-12-16 18:10 | NUR ---
SHIFT SUMMARY PT HAS BEEN TEARFUL THIS AFTERNOON, KEEPS REPEATING "I JUST WANT TO GO HOME". REFUSING REPOSITIONING AT THIS TIME SHE IS EATING DINNER AND "JUST GOT COMFORTABLE". PT HAS REFUSED ALL MEDICATIONS TODAY OTHER THAN PAIN MEDICATION.
--- NOTE | 2020-12-17 03:07 | NUR ---
REPOSITIONED IN BED FOR COMFORT. ASSISTED WITH FLUIDS + SNACK. MEDICATION GIVEN FOR ANXIETY. BED ALARM ON FOR SAFETY. IRONMOLDER AT BEDSIDE FOR COMFORT.
--- NOTE | 2020-12-17 04:19 | NUR ---
SHIFT SUMMARY PT RESTING WELL THIS AM. CONFUSED/COOPERATIVE. DISCOMFORT DECREASED WITH 10mg ROXICODONE X1. NO NAUSEA/EMESIS. ANXIETY DECREASED WITH 1MG PO ATIVAN THIS AM, RESTING WELL POST. LLE EXTERNALLY ROTATED, MOVES ALL TOES WELL, PPP, DENIES NUMBNESS/TINGLING ALL EXTREMITIES. PT ENJOYS HOT COFFEE + APPLE SAUCE, NEEDS ASSISTANCE WHILE FEEDING. SHAIKH SECURE WITH YELLOW/SEDIMENT URINE OUT. AWAITING PLACEMENT. PT CURRENTLY RESTING WELL WITH CALL LIGHT IN REACH.
--- NOTE | 2020-12-17 10:30 | NUR ---
PT GIVEN A BED BATH. PAINFUL WITH MOVEMENT, ROXANOL GIVEN. PT REASSURED AND PROCESS EXPLAINED. PT WAS REPOSITION TO HER RIGHT SIDE AND LLE ELEVATED ON PILLOWS.
--- NOTE | 2020-12-17 11:54 | NUR ---
PT IS SITTING UP FOR LUNCH. JONAH ROB IS ASSISTINT PT TO EAT LUNCH. LLE REPOSTITIONED AND PAIN RELIEVED.
--- NOTE | 2020-12-17 15:19 | NUR ---
PT WAS ASSISTED WITH REPOSTIONING. PT WOKE UP FOR REPOSITIONING BUT TOLERATED WELL. BLE COOL TO THE TOUCH, WARM BLANKET PROVIDED. WILL CONTINUE TO MONITOR.
--- NOTE | 2020-12-17 18:00 | NUR ---
PT IS RESTING IN BED. PILLOWS PLACED UNDER BILATERAL HIPS. HEALS FLOATED. PT ASSISTED WITH DINNER BY JONAH ROB. FLUIDS OFFERED. PT APPEARS COMFORTABLE AND AT REST WHEN LEFT UNDISTURBED.
--- NOTE | 2020-12-17 18:05 | NUR ---
SHIFT SUMMARY PT HAS RESTED MOST OF THE DAY. SHE WAKES WHEN SPOKEN TO BUT FALLS BACK TO SLEEP QUICKLY. PT WAKES FOR MEALS AND REQUIRES ASSISTANCE WITH FOOD AND FLUIDS. PAIN HAS BEEN MANAGED WITH ROXANOL 10MG X1 TODAY. PT HAS OTHERWISE APPEARED COMFORTABLE AND TOLERATES REPOSITIONING WELL. WILL MONITOR UNTIL REPORT TO MITCHELL DOZIER.
--- NOTE | 2020-12-18 04:12 | NUR ---
SHIFT SUMMARY: PT HAD A DIFFICULT TIME RESTING IN BEGINNING OF SHIFT. PT OCCASIONALLY MOANING/GROANING. MEDICATED WITH 10MG ROXINAL PER EMAR. PT THEN APPEARED TO BECOME ANXIOUS AND WAS HOLLERING OUT "HELP ME". MEDICATED WITH ATIVAN PER EMAR WHICH WAS EFFECTIVE. PT APPEARS TO BE RESTING WELL THIS MORNING. REPOSITIONED AND OFFERED PO FLUIDS FOR COMFORT. PT TOLERATING MEDS WHOLE IN PUDDING. SHAIKH PATENT AND DRAINING DARK YELLOW URINE. SEDIMENT NOTED IN TUBING. MINIMAL OUTPUT.
--- NOTE | 2020-12-18 07:33 | NUR ---
pt confused COMFORTED PT AND ATTEMPTED TO REORIENT TO SITUATION.
--- NOTE | 2020-12-18 14:30 | NUR ---
PT SLEEPING. RESPIRATIONS E/U. DOES NOT APPEAR TO BE IN DISTRESS AT THIS TIME.
--- NOTE | 2020-12-18 15:20 | NUR ---
FAMILY AT BEDSIDE.
--- NOTE | 2020-12-18 17:15 | NUR ---
RESTING W/EYES CLOSED.
--- NOTE | 2020-12-18 18:07 | NUR ---
SUMMARY PT MOANING AND CRYING OUT; MEDICATED PER ORDERS FOR PAIN W/10MG ROXANOL. PT DOES NOT APPEAR ALERT ENOUGH TO TAKE COREG SAFELY. WHEN OFFERED WATER W/ STRAW THIS AM, PT WAS ABLE TO DRINK. NOW, DOES NOT GRASP STRAW WITH MOUTH WHEN OFFERED. PT ALSO ABLE TO TAKE PILLS WHOLE W/CHOCOLATE PUDDING THIS AM. OFFERED SIPS OF WATER W/SPOON, TOOK TWO SIPS. REPOSITIONED T/O SHIFT. SHAIKH DRAINING SMALL AMOUNT DARK YELLOW, CLOUDY URINE. FAMILY IN TO SEE PT THIS AFTERNOON.
--- NOTE | 2020-12-18 21:43 | NUR ---
PT SLEEPING. 13 RR.
--- NOTE | 2020-12-19 03:55 | NUR ---
SHIFT SUMMARY NO ACUTE CHANGES OVERNIGHT. PT CONTINUES TO MOAN AND UNCOMFORTABLE. REPOSITIONED AND ADMINSTERED ATIVAN. IT DIDN'T SEEMED TO HELPED. MEDICATED WITH ROXANOL 10MG FOR PAIN. APPEARED TO BE HELPING, PT WAS CALM AND SLEEPING T/O SHIFT. SHE WAS PAINFUL DURING CATH CARE AND REPOSITIONING. SHE ALSO HAD A HARD TIME GRASPING STRAW WITH HER MOUTH LAST NIGHT BUT WAS ABLE TO SWALLOW OK WITH CRUSHED MED MIXED WITH CHOCOLATE PUDDING. SHAIKH IS DRAINING VERY MINIMAL AMOUT. WILL CONTINUE TO MONITOR PATIENT AND PROVIDE REPORT TO ONCOMING NURSE.
--- NOTE | 2020-12-19 08:58 | NUR ---
REPOSITIONED PT BARELY WOKE AND THEN IMMEDIATELY RETURNED TO SLEEP.
--- NOTE | 2020-12-19 10:43 | NUR ---
repositioned OFFERED PT WATER BUT COULD NOT CLOSE MOUTH ON STRAW.
--- NOTE | 2020-12-19 12:00 | NUR ---
Case conference with RN and reviewed EMR. Went to visit pt who is sleeping soundly. She did not wake to voice or gentle touch. I did not observe any nonverbal indicators of pain, restlessness, agitation or distress. Resp even and unlabored. RN reports decreased PO intake in past 24 hours and decrease urine output to holt drainage noted. Decline in general status noted per staff. Pt had period of agitation and calling out for "momma" yesterday pm and was medicated with ativan per eMAR prn. Pt has not required medication for pain or anxiety today or during the noc. Plan is for pt to be transferred to [facility] with hospice support. CM working with [facility] and family on this plan, unknown timeframe per RN.
--- NOTE | 2020-12-19 12:41 | NUR ---
PT AWOKE WHEN REPOSITIONED TOOK SIP OF WATER.
--- NOTE | 2020-12-19 16:39 | NUR ---
PT WOKE BRIEFLY NODDED YES WHEN ASKED IF WANTED SIP OF WATER BUT FELL ASLEEP WHEN ATTEMPTING TO TAKE DRINK.
--- NOTE | 2020-12-19 17:59 | NUR ---
SUMMARY NO ACUTE CHANGES T/O SHIFT. PT SLEPT MOST OF DAY, WOULD WAKE BRIEFLY TO VOICE AND THEN RETURN TO SLEEP. HAD DIFFICULTY SWALLOWING WATER, DID NOT GIVE PO MEDS FOR SAFETY. DID MEDICATE PT THIS EVENING WITH 10 MG ROXANOL DUE TO CRYING OUT. REPOSITIONED T/O SHIFT. PLAN TO DC TO [facility] ON THURSDAY W/[facility] PER FELTON THAPA.
--- NOTE | 2020-12-20 04:26 | NUR ---
SHIFT SUMMARY NO ACUTE CHANGE OVERNIGHT. PT SLEPT MOST OF THE NIGHT. SHE APPEARED TO BE MOANING AFTER MIDNIGHT, MEDICATED WITH ROXANOL 10MG. REPOSITIONED. PUNCTURED COLACE CAP AND MIXED WITH MICKIE PUDDING. PT WAS ABLE TO SWALLOW OK. NO DIFFICULTY. ENC TO DRINK FLUIDS. ATTEMPTED TO FEED PT BUT AFTER 3 SPOON SCOOP OF PUDDING, SHE STATED "THAT'S ENOUGH". REMAIN TO HAVE LOW UA OUTPUT, ALSO HASNT BEEN DRINKING MUCH. CALL LIGHT WITHIN REACH. WILL PROVIDE REPORT TO ONCOMING NURSE. PLAN: DC AT [facility], THURSDAY.
--- NOTE | 2020-12-20 07:48 | NUR ---
RESTING QUIETLT, AWAKENS AND OPENS EYES AND CRIED OUT. PT CLOSED EYES AND CALMS WHEN RN TALKING WITH PATIENT
--- NOTE | 2020-12-20 10:42 | NUR ---
LYING WITH EYES CLOSED, CRIES OUT AND PUSHES MY HAND AWAY WHEN ORAL CARE BEING DONE. WATER OFFERED AND PATIENT PUSHES MY HAND AWAY. RETURNS TO LYING WITH EYES CLOSED WHEN ORAL CARE COMPLETED
--- NOTE | 2020-12-20 15:09 | NUR ---
PTS SON, DAUGHTER AND GRANDDAUGHTER HERE TO VISIT AND ALL ARE AGREEABLE WITH PLAN TO DISCHARGE IN AM TO [facility]
--- NOTE | 2020-12-20 15:56 | NUR ---
FAMILY HERE TO VISIT, REQUESTS PT NOT BE REPOSITIONED AT THIS TIME
--- NOTE | 2020-12-20 17:35 | NUR ---
summary PT HAS HAD NO PO INTAKE, CRIES OUT AND PUSHES MY HAND AWAY WHEN FLUIDS OR PUDDING OFFERED. PT FROWNING AND MOANING AT TIMES AND FACE RELAXES AND LIES QUIETLY AFTER ROXANOL GIVEN. PTS FAMILY IN AGREEMENT WITH PLANS TO TRANSFER TO [facility] IN AM
--- NOTE | 2020-12-21 00:03 | NUR ---
PATIENT RESTING COMFORTABLY IN BED. MEDICATED W/ ROXINOL NEEDED FOR PAIN. NO SIGNS OF DYSPNEA NOTED. SHAIKH PATENT. ORAL SWABS UTILIZED. REPOSITIONED TOLERATED. PATIENT AROUSES TO VOICE BUT ONLY ANSWERS YES/NO QUESTIONS. ASLEEP MOST OF NIGHT.
[2020-12-21 08:29] LABS: SARS-Cov-2 (COVID-19) PCR, MMC NEGATIVE (NEGATIVE)
--- NOTE | 2020-12-21 08:48 | NUR ---
PATIENT APPEARS TO BE RESTING COMFORTABLY AT THIS TIME.
--- NOTE | 2020-12-21 08:49 | NUR ---
PATIENT APPEARS TO BE RESTING COMFORTABLY AT THIS TIME.
--- NOTE | 2020-12-21 10:48 | NUR ---
DISCHARGE NOTE: LEFT FEMUR FX - NONSURGICAL PATIENT WAS JUST PICKED UP FROM AMBULANCE AND TRANSFERRED FROM BED TO [facility]. ALL OF HER BELONGINGS WERE GATHERED AND IN BAGS. HARD PERSCRIPTIONS WERE IN THE FOLDER THAT WAS TAKEN WITH THE EMT'S. THIS NURSE GAVE REPORT TO [facility] NURSE VICTORINO. SHAIKH IS PATENT WITH LITTLE OUTPUT IN THE SHAIKH BAG. LEFT HIP IS SWOLLEN DIFFICULT TO MOVE AND CAUSES PATIENT PAIN. PATIENT OPEN EYES WITH TOUCH AND CALLING HER NAME. PATIENT HAS HAD NO PO INTAKE THIS MORNING. PAIN IS MANAGED WITH LIQUID ROXANOL. ONCE PATIENT WAS ADJUSTED TO [facility] AND GIVEN ROXANOL SHE BECAME LESS TENSE. EMT'S ARE TRANSPORTING HER TO [facility] ON COMFORT CARE.
== END 2020-12-21 10:48 | disposition hospice, inpatient (51) | DRG 444 ==
LOC: ER 16:44 → SURS 18:44 → MEDS 18:44 → SURS 21:57
PROVIDERS: Emergency Medicine; Family Medicine; ADMIT Internal Medicine
DX: K80.62 Calculus of gallbladder and bile duct with acute cholecystitis without obstruction (principal); S72.002A Fracture of unspecified part of neck of left femur, initial encounter for closed fracture; E43 Unspecified severe protein-calorie malnutrition; Z68.1 Body mass index [BMI] 19.9 or less, adult; E78.5 Hyperlipidemia, unspecified; I10 Essential (primary) hypertension; Z51.5 Encounter for palliative care; Z66 Do not resuscitate; Z20.822 Contact with and (suspected) exposure to COVID-19; J44.9 Chronic obstructive pulmonary disease, unspecified; R62.7 Adult failure to thrive; I25.2 Old myocardial infarction; N18.30 Chronic kidney disease, stage 3 unspecified; Z79.899 Other long term (current) drug therapy; F32.9 Major depressive disorder, single episode, unspecified; Z98.51 Tubal ligation status; Z96.652 Presence of left artificial knee joint; M19.90 Unspecified osteoarthritis, unspecified site; Z79.82 Long term (current) use of aspirin; M85.80 Other specified disorders of bone density and structure, unspecified site; K21.9 Gastro-esophageal reflux disease without esophagitis; X58.XXXA Exposure to other specified factors, initial encounter; G30.9 Alzheimer's disease, unspecified; F02.80 Dementia in other diseases classified elsewhere, unspecified severity, without behavioral disturbance, psychotic disturbance, mood disturbance, and anxiety; L89.322 Pressure ulcer of left buttock, stage 2; L89.312 Pressure ulcer of right buttock, stage 2
CPT/HCPCS: 36415; 51702; 71045; 74176; 80053; 81003; 82550; 83880; 85025; 93005; 93010; 96360-59; 96361-59; 99285-25; A9270; J2270; J3010; J7030; P9046; U0004